=== PATIENT | female | born 1940 | race Caucasian/White ===

== ENCOUNTER → 2017-05-21 | Outpatient (CLI) | payer OTHER, BC ==
[2017-05-21 16:38] LABS: APPEARANCE SL.HAZY/COLORLESS; APPEARANCE (RECHECK) CLEAR/COLORLESS; CSF TUBE NUMBER (RECHECK) TUBE #1; RED CELL AREA COUNTED 0.4; RED CELL COUNT 2000 /MM^3 (0-1); RED CELL DILUTION 1; WBC AREA COUNTED 18; WBC DILUTION 1; WHITE CELL COUNT 14 /MM^3 (0-5); WHITE CELL RAW COUNT 26
[2017-05-21 16:39] LABS: RED CELL AREA COUNTED 8; RED CELL COUNT (RECHECK) 230 /MM^3 (0-1); RED CELL DILUTION 1
[2017-05-21 17:01] LABS: CSF EOSINOPHILS 0 % (0-25); MONO RAW COUNT 95; MONONUCLEAR WBC'S 95 % (50-90); POLY RAW COUNT 5; POLYNUCLEAR WBC'S 5 % (0-3)
[2017-05-22 20:24] LABS: HSV CSF Spec Source CSF (())
== END | disposition home or self-care (01) ==
LOC: RAD 14:39
PROVIDERS: Physician Assistant
PROC: 009U3ZZ Drainage of Spinal Canal, Percutaneous Approach (ICD-10-PCS; principal; 2017-05-21)
DX: M54.16 Radiculopathy, lumbar region (principal)
CPT/HCPCS: 62270; 77003; 82164 90; 82945; 84157; 86592 90; 86617 90; 86618 90; 87070; 87205; 87529 90; 89051